=== PATIENT | female | born 1955 | race Caucasian/White ===

== ENCOUNTER 2017-03-15 06:33 | Day surgery (SDC) | payer BC ==
[~2017-03-15] VITALS: Ht 165.1 cm; Wt 66.1 kg
[~2017-03-15 06:33] MED LIST: LEVO75TA10 PO; NORG1TAB17 PO
--- OUTSIDE RECORDS SUMMARY | 2017-03-15 06:38 | XMS REPORT | Referral Summary ---
Author Author [facility], Family Medicine Organization [facility] Address Unknown Phone Unavailable Care Team Providers Care Package Wrapper Name Role Phone Lev Bernstein Primary Care Physician [phone] Encounter [facility] [id number] Date(s): 09/16/15 - 09/16/15 [facility] [address] [place] [address] Discharge Diagnosis: Hypothyroidism Discharge Diagnosis: Hormone replacement therapy Discharge Diagnosis: Well woman exam with routine gynecological exam Discharge Disposition: -Home or Self Care Attending Physician: Nayeli Domingo APRN Admitting Physician: Nayeli Domingo APRN Vital Signs Most recent to 1 oldest [Reference Range]: Peripheral Pulse 70 bpm Rate [60-100 bpm] (09/16/15 8:27 AM) Blood Pressure 116/60 mmHg [90-140/60-90 mmHg] (09/16/15 8:27 AM) Problem List Condition Effective Dates Status Health Status Informant Hypothyroidism(Confi Active rmed) Hypothyroidism Active (disorder)(Confirmed ) Benign essential Active hypertension (disorder)(Confirmed ) Encounter for Active long-term (current) use of medications(Confirme d) Hyperlipidemia(Confi Active rmed) Hypertension(Confirm Active ed) Menopausal/post-valentín Resolved pausal state(Confirmed) Mixed hyperlipidemia Active (disorder)(Confirmed ) Mixed Active hyperlipidemia(Confi rmed) Allergies, Adverse Reactions, Alerts No Known Medication Allergies Medications calcium carbonate /Vitamin D3, 0 Refill(s) Start Date: 08/10/14 Status: Ordered Cough & Cold tabs, Oral, q6hr, 0 Refill(s) Start Date: 11/27/15 Status: Ordered levothyroxine 75 mcg (0.075 mg) oral tablet 75 mcg 1 tabs, Oral, Daily, pt needs appointment with new pcp, # 90 tabs, 2 Refill(s), Pharmacy: [facility], 1 tabs Oral Daily,Instr:pt needs appointment with new pcp Start Date: 03/21/16 Status: Ordered Low-Ogestrel 0.3 mg-30 mcg oral tablet See Instructions, 1 tabs Oral 3 days a week, # 40 tabs, 3 Refill(s) Start Date: 03/14/16 Status: Ordered Multivitamins oral tablet 1 tabs, Oral, Daily, with food, 0 Refill(s) Start Date: 08/10/14 Status: Ordered Results No data available for this section Immunizations Vaccine Date Refusal Reason influenza virus vaccine, live 09/06/12 Procedures Procedure Date Related Diagnosis Body Site Mammogram 03/23/16 Bilateral tubal ligation Colonoscopy Social History Social History Type Response Smoking Status Never smoker Assessment and Plan No data available for this section
--- OUTSIDE RECORDS SUMMARY | 2017-03-15 06:38 | XMS REPORT | Referral Summary ---
Author Author [facility], [facility] Medicine Organization [facility] Address Unknown Phone Unavailable Care Team Providers Care Database Technician Name Role Phone DayLev Primary Care Physician [phone] Encounter [facility] [id number] Date(s): 12/02/15 - 12/02/15 [facility] [address] [place] [id number] Discharge Diagnosis: Visit for suture removal Discharge Disposition: 01-Home or Self Care Attending Physician: Carlos Manuel Morrison DO Admitting Physician: Carlos Manuel Morrison DO Vital Signs Most recent to 1 oldest [Reference Range]: Temperature Tympanic 36.5 degC [36.6-38.1 degC] *LOW* (12/02/15 8:02 AM) Peripheral Pulse 77 bpm Rate [60-100 bpm] (12/02/15 8:02 AM) Blood Pressure 140/78 mmHg [90-140/60-90 mmHg] (12/02/15 8:02 AM) Problem List Condition Effective Dates Status [...] tablet 75 mcg 1 tabs, Oral, Daily, # 90 tabs, 0 Refill(s), Pharmacy: [facility], 1 tabs Oral Daily Start Date: 09/17/15 Status: Ordered Multivitamins oral tablet 1 tabs, Oral, Daily, with food, 0 Refill(s) Start Date: 08/10/14 Status: Ordered Prempro 0.3 mg-1.5 mg oral tablet 1 tabs, Oral, Daily, # 90 tabs, 3 Refill(s), Pharmacy: [facility] Start Date: 09/16/15 Status: Ordered Results No data available for this section Immunizations Vaccine Date Refusal Reason influenza virus vaccine, live 09/06/12 Procedures Procedure Date Related Diagnosis Body Site Bilateral tubal ligation Colonoscopy Social History Social History Type Response Smoking Status Never smoker Assessment and Plan Extracted from: Title: Office Visit Note Author: Carlos Manuel Morrison DO Date: 12/02/15 Assessment/Plan Visit for suture removal Suture removal without difficulty. Steri-Strips applied, wound care instructions provided. Ordered: Office Visit No Charge
--- OUTSIDE RECORDS SUMMARY | 2017-03-15 06:38 | XMS REPORT | Referral Summary ---
Author Author [facility], [facility] Care Organization [facility], [facility] Address Unknown Phone Unavailable Care Team Providers Care Band Aid Machine Operator Name Role Phone DayLev Primary Care Physician [phone] Encounter [facility] [id number] Date(s): 11/27/15 - 11/27/15 [facility], [address] [place] [address]- Discharge Diagnosis: Syncope Discharge Diagnosis: Eyebrow laceration Discharge Disposition: 01-Home or Self Care Attending Physician: Carlos Manuel Morrison DO Admitting Physician: Carlos Manuel Morrison DO Vital Signs Most recent to 1 oldest [Reference Range]: Peripheral Pulse 87 bpm Rate [60-100 bpm] (11/27/15 10:24 AM) Blood Pressure 142/78 mmHg [90-140/60-90 mmHg] *HI* (11/27/15 10:24 AM) SpO2 97 % (11/27/15 10:24 AM) Problem List Condition Effective Dates Status [...] Procedures Procedure Date Related Diagnosis Body Site Simple repair of superficial wounds of face, 11/27/15 ears, eyelids, nose, lips and/or mucous membranes; 2.6 cm to 5.0 cm Bilateral tubal ligation Colonoscopy Social History Social History Type Response Smoking Status Never smoker Assessment and Plan Extracted from: Title: Syncope and left eyebrow Author: Carlos Manuel Morrison DO Date: 11/27/15 laceration Assessment/Plan Eyebrow laceration 1. The laceration was cleansed, supraorbital nerve block was done and the wound was explored thoroughly. No foreign bodies appreciated. 2. Simple laceration repair was done using 6-0 Prolene in a running suture manner. 3. Dry dressing was applied and wound care instructions provided. 4. Tetanus booster was less than 10 years. Ordered: Office Visit Level 4 Est 99471 Repair Wound Simple Face Ears Nose 2.6-5.0cm 15170 Syncope 1. Syncopal episode was likely secondary to her recent upper respiratory tract illness and the [id number] medications that she is taking. 2. Clinically she appears to be stable, no cardiac or neurological findings found. 3. Follow-up if worsening symptoms or recurrence of her syncopal episode. Patient and her voiced understanding. Ordered: Office Visit Level 4 Est 99376
--- OUTSIDE RECORDS SUMMARY | 2017-03-15 06:38 | XMS REPORT | Referral Summary ---
Author Author [facility], Family Medicine Organization [facility] Address Unknown Phone Unavailable Care Team Providers Care Moisture Meter Reader Name Role Phone Lev Bernstein Primary Care Physician [phone] Encounter Date(s): 03/14/16 - 03/14/16 [facility] [address] [place] [address] Discharge Diagnosis: Hypothyroidism Discharge Diagnosis: Encounter for well woman exam without gynecological exam Discharge Diagnosis: Benign essential hypertension (disorder) Discharge Disposition: 01-Home or Self Care Attending Physician: Sybil Bernstein DO Admitting Physician: Sybil Bernstein DO Vital Signs Most recent to 1 oldest [Reference Range]: Peripheral Pulse 72 bpm Rate [60-100 bpm] (03/14/16 7:48 AM) Respiratory Rate 18 br/min [14-20 br/min] (03/14/16 7:48 AM) Blood Pressure 148/84 mmHg [90-140/60-90 mmHg] *HI* (03/14/16 7:48 AM) SpO2 99 % (03/14/16 7:48 AM) Problem List Condition Effective Dates Status [...] appointment with new pcp, # 90 tabs, 0 Refill(s), Pharmacy: [facility], 1 tabs Oral Daily,Instr:pt needs appointment with new pcp Start Date: 12/21/15 Status: Ordered Low-Ogestrel 0.3 mg-30 mcg oral [...] Extracted from: Title: Office Visit Note Author: Sybil Bernstein DO Date: 03/14/16 Assessment/Plan Benign essential hypertension (disorder) We will continue to monitor at this time. Encounter for well woman exam without gynecological exam Doing well, not due for Pap this year,she will get her mammogram, colonoscopy will be due next year. Ordered: Periodic Comp Preventive Med 40 to 64 years Est [address] Hypothyroidism Not yet due for lab work, continue current care. Orders: norgestrel-ethinyl estradiol, See Instructions, 1 tabs Oral 3 days a week, # 40 tabs, 3 Refill(s)
--- OUTSIDE RECORDS SUMMARY | 2017-03-15 06:38 | XMS REPORT | Continuity of Care Document ---
Author Author [facility] Address Unknown Phone Unavailable Allergies Medications Problems Date Dx Coded Attending Type Code Diagnosis Diagnosed By 02/10/2015 Ot V76.12 02/10/2015 JUAN DICKINSON MD Ot 611.89 02/10/2015 JUAN DICKINSON MD Ot V76.12 03/08/2015 JUAN DICKINSON MD Ot 611.79 03/08/2015 JUAN DICKINSON MD Ot V76.12 03/23/2016 Ot V76.12 OTH SCREEN MAMMO-MALIGN NEOPLASM OF KINGA 03/23/2016 JUAN DICKINSON MD Ot 611.89 OTHER SPECIFIED DISORDERS OF BREAST 03/23/2016 JUAN DICKINSON MD Ot V76.12 OTH SCREEN MAMMO-MALIGN NEOPLASM OF [place]INGA 03/23/2016 JUAN DICKINSON MD Ot 611.79 SYMPTOMS IN BREAST NEC 03/23/2016 JUAN DICKINSON MD Ot V76.12 OTH SCREEN MAMMO-MALIGN NEOPLASM OF KINGA 03/29/2016 GAGANDEEP RAMOS DO Ot Z12.31 ENCNTR SCREEN MAMMOGRAM FOR MALIGNANT NE 03/30/2016 GAGANDEEP RAMOS DO Ot Z12.31 ENCNTR SCREEN MAMMOGRAM FOR MALIGNANT NE 04/13/2016 GAGANDEEP RAMOS DO Ot Z12.31 ENCNTR SCREEN MAMMOGRAM FOR MALIGNANT NE Procedures Results Encounters ACCT No. Visit Date/Time Discharge Status Pt. Type Provider Facility Loc./Unit Complaint [id number] 02/17/2015 10:50:00 2014 23:59:59 CLS Outpatient ALOK GOMEZ [facility] RAD [id number] 02/12/2014 11:35:00 2013 23:59:59 CLS Outpatient ALOK GOMEZ [facility] RAD [id number] 03/23/2016 11:29:00 ACT Outpatient RACHEL DO, [facility] [id number] 02/06/2013 10:59:00 Document Registration
--- OUTSIDE RECORDS SUMMARY | 2017-03-15 06:38 | XMS REPORT | Referral Summary ---
Author Author [facility], Family Medicine Organization [facility] Address Unknown Phone Unavailable Care Team Providers Care Ornamenter Hand Name Role Phone Lev Bernstein Primary Care Physician [phone] Encounter [facility] [id number] Date(s): 09/16/15 - 09/16/15 [facility], [address] [place] [address] Discharge Diagnosis: Hypothyroidism Discharge Diagnosis: Hormone replacement therapy Discharge Diagnosis: Well woman exam with routine gynecological exam Discharge Disposition: 01-Home or Self Care Attending Physician: Nayeli Domingo [...] Active ed) Menopausal/post-valentín Resolved pausal state(Confirmed) Mixed Active hyperlipidemia(Confi rmed) Mixed hyperlipidemia Active (disorder)(Confirmed ) Allergies, Adverse Reactions, Alerts No Known Medication Allergies Medications calcium carbonate /Vitamin D3, 0 Refill(s) Start Date: 08/10/14 Status: Ordered levothyroxine 75 mcg (0.075 mg) oral tablet 75 mcg 1 tabs, Oral, Daily, # 90 tabs, 3 Refill(s), Pharmacy: [facility], 1 tabs Oral Daily Start Date: 09/16/15 Status: Ordered Multivitamins oral tablet 1 tabs, [...]
[2017-03-15 06:51] VITALS: BP 193/91; PULSE 59; RESP 17; TEMP 98; O2SAT 99; Ht 165.1 cm; Wt 66.1 kg
[2017-03-15] MEDS ORDERED: LR 1,000 ML IV SCH (07:00)
[2017-03-15] MEDS ORDERED: LIDOCAINE 1% (10mg/ml) 2ml SDV INJ ONE (07:00)
[2017-03-15 07:09] VITALS: BP 183/86; PULSE 54
--- NOTE | 2017-03-15 07:18 | ANESPREOP ---
Anesthesia Record Date and Time DATE: 03/15/17 TIME: 07:16 Pre-Op Diagnosis family hx of colon ca Proposed Surgical Procedure COLONOSCOPY Allergies: Coded Allergies: No Known Allergies (Unverified , 03/15/17) Ht/Wt/BMI Height: 5 ' 5.00 " Weight: 66.100 kg BMI: 24.3 kg/m2 Vital Signs Date Time Temp Pulse Resp B/P Pulse Ox O2 Delivery O2 Flow Rate FiO2 03/15/17 07:09 54 183/86 03/15/17 06:51 98.0 17 99 Room Air Medications Inpatient Medications Current Medications Medications (Trade) Dose Ordered Sig/Fernando Start Time Stop Time Status Last Admin Dose Admin Lactated Ringer's (Lactated Ringers) 1,000 ml @ 30 mls/hr Q24H 03/15/17 07:00 03/15/17 07:01 30 MLS/HR Levothyroxine Sodium (Levothyroxine Sodium) 75 Mcg Tablet, 1 TAB PO DAILY, ( Reported) Last Taken: on 03/15/17 0400 Norgestrel-Ethinyl Estradiol (Mpy-Ppbyglcf-83 Tablet) 1 Tab Tablet, 1 TAB PO 3XW, (Reported) Last Taken: on 03/14/17 0600 Currently on Beta Fany: No Medical/Surgical History Anesthesia PMH: Reports: *Hypertension, Thyroid Disease, Denies: *Diabetes, Anesthesia Reactions (NO AIRWAY ISSUES), Arthritis, Cancer, Clotting Problems, Glaucoma, Malignant Hyperthermia, Renal Disease, Sleep Apnea Smoking Status: Never smoker Has pt. smoked today?: No Use Chewing Tobacco?: No Second Hand Exposure: No Substance Use Type: does not use Substance last used: unknown Alcohol Intake: none Last Drink: unknown HX of Last Menstrual Period: AROUND AGE 50 Past Surgical History Orthopedic Surgeries: Abdominal Surgeries: Genitourinary Surgeries: Cardiac Surgeries: Endocrine Surgeries: Reproductive Surgeries: Yes - TUBAL LIGATION Neurological Surgeries: Ear Surgeries: Nose Surgeries: Throat Surgeries: Other Surgeries: Anesthesia Adverse Reactions: FOUND none Family Hx of Anesthesia Advers: none Hx of Motion Sickness: No Pertinent Findings EKG Rhythm: Sinus Rhythm Physical Exam Respiratory: Bilat breath sounds equal, Lungs clear Cardiovascular: FOUND Regular rate, rhythm, FOUND No murmur Airway Assessment Mallampati Score: I TMD: 3 Fingerbreadths Neck Extension: Good Overall Assessment: No Airway Concerns ASA: 2 Plan Anesthesia Plan: TIVA Discussion Discussed risks/options/alternatives of anesthesia and questions answered. Patient consents. Nursing pain assessment noted. Present: Spouse Attestation Statement Prior to the delivery of any anesthetic medication, I examined the patient, developed the plan, obtained the patient's consent and discussed the risk and benefits of the procedure with the patient/guardian. WILLIE AUSTIN ESTATE MANAGER Mar 15, 2017 07:18
[2017-03-15] MEDS ORDERED: LIDOCAINE 1% (10mg/ml) 2ml SDV ONE (08:22)
[2017-03-15] MEDS ORDERED: PROPOFOL 500mg 50 ML IV ONE (08:22)
[2017-03-15 09:03] VITALS: BP 153/70; PULSE 58; RESP 12; TEMP 96.9; O2SAT 97
--- NOTE | 2017-03-15 09:12 | ANESPO ---
Post-Op Note Date 03/15/17 Time: 09:11 Status Pt Participated in Evaluation: Pt participated in person Vital Signs Date Time Temp Pulse Resp B/P Pulse Ox O2 Delivery O2 Flow Rate FiO2 03/15/17 09:03 96.9 58 12 153/70 97 Room Air Respiratory Function: Airway patent, Regular respirations Cardiovascular Function: Regular pulse Mental Status: Alert/oriented Pain Level Intensity: 0 Unable to Assess Pain Due To: Medicated/Sleeping Hydration: Taking po fluids, IV infusing Complications during Recovery None apparent Post-Anesthesia Notes pt. omar. well Follow-Up Instructions Instructions Per Surgeon Additional Information none WILLIE AUSTIN CRNA Mar 15, 2017 09:12
[2017-03-15 09:17] VITALS: BP 141/65; PULSE 61; RESP 16; O2SAT 96
[2017-03-15 09:35] VITALS: BP 152/72; PULSE 56; RESP 18; O2SAT 99
--- NOTE | 2017-03-15 19:05 | OPNOTEF ---
DATE OF SERVICE 03/15/2017 SURGEON Dipesh Graves MD PREOPERATIVE DIAGNOSIS Family history for colon cancer within a first-degree relative. POSTOPERATIVE DIAGNOSIS Family history for colon cancer within a first-degree relative. Moderate sigmoid diverticulosis. PROCEDURES Colonoscopy. ANESTHESIA TIVA BRIEF HISTORY/INDICATIONS Mrs. Lloyd is a 61-year-old female who presents today to [facility] to undergo a colonoscopy as a result of her family history for colon cancer within her father. For completeness please refer to notes included in the patient's chart. FINDINGS Upon colonoscopy there was no evidence for angiodysplastic lesions, polyps or edward malignancies. The patient was found to have a moderate number of diverticula within the sigmoid colon region. NARRATIVE OF PROCEDURE After informed consent was obtained, the patient was brought to the endoscopy suite and placed on the table in the left lateral decubitus position. The patient subsequently underwent total intravenous anesthesia by the nurse surgeon assistant per my request. A formal timeout was then completed. Next, a digital rectal examination was performed. Normal sphincter tone. No rectal masses were appreciated. An Olympus colonoscope was inserted in the anus and advanced with the lumen of the colon under direct visualization at all times until the cecum was ascertained. Triangulation of the tenia coli, ileocecal valve and appendiceal lumen were all visualized. The scope was then slowly withdrawn, again maintaining visualization of the lumen at all times. As stated above, the entire colon was without evidence for angiodysplastic lesions, polyps or edward malignancies. The patient was found to have a moderate number of diverticula within the sigmoid colon region. The scope continued to be withdrawn until it was brought forth back into the rectal vault. A J-maneuver was then performed. No worrisome perianal pathology was noted. The scope was allowed to straighten and was withdrawn through the anal verge. The patient tolerated the procedure without difficulty and was sent back to the preoperative area in stable condition. Secondary to the absence of findings upon this colonoscopy and secondary to the patient's family history of colon cancer within a first-degree relative, I would recommend that she undergo repeat colonoscopy at a five-year interval. BROOKS
== END 2017-03-15 09:40 | disposition home or self-care (01) ==
LOC: SCU 06:33
PROVIDERS: ATTEND Surgery
DX: Z12.11 Encounter for screening for malignant neoplasm of colon (principal); K57.30 Diverticulosis of large intestine without perforation or abscess without bleeding; Z80.0 Family history of malignant neoplasm of digestive organs; I10 Essential (primary) hypertension; E78.2 Mixed hyperlipidemia; E03.9 Hypothyroidism, unspecified; Z79.899 Other long term (current) drug therapy
CPT/HCPCS: 45378; J2704; J7120

== ENCOUNTER → 2017-03-23 | Outpatient (CLI) | payer BC | LOC: WC.BC 08:06 | DX: Z12.31 Encounter for screening mammogram for malignant neoplasm of breast (principal) | CPT/HCPCS: 77063; G0202 ==